=== PATIENT | female | born 1970 | race Caucasian/White ===

== ENCOUNTER 2020-08-07 16:48 | Outpatient (REF) | payer BC, SELFPAY ==
--- NOTE | 2020-08-07 | XR_ITS ---
EXAMINATION: XR LUMBOSACRAL SPINE CLINICAL INFORMATION: Low back pain radiating to left leg COMPARISON: None TECHNIQUE: Three views of the lumbosacral spine. FINDINGS: Bone alignment is normal. No fracture or dislocation is seen. Disc spaces are normal. There is lower lumbar spine facet arthritis. There are surgical clips projecting over the right mid abdomen. IMPRESSION: Lower lumbar spine facet arthritis.
== END 2020-08-07 16:49 | disposition home or self-care (01) ==
LOC: HO.XRAY 16:48
PROVIDERS: PCP Internal Medicine
DX: M54.9 Dorsalgia, unspecified (principal)
CPT/HCPCS: 72100